=== PATIENT | female | born 1945 | race Caucasian/White ===

== ENCOUNTER → 2021-03-27 | Outpatient (CLI) | payer OTHER ==
[~2021-03-27] MED LIST: ADMELOG SO100 UNIT/1 SC; AMLODIPINE BESY10 MG PO; CALCIUM CARBON500 MG PO; CITALOPRAM HBR40 MG PO; CLOPIDOGREL75 MG PO; FUROSEMIDE40 MG PO; GABAPENTIN100 MG PO; ISOSORBIDE MONO30 MG PO; LANTUS SOL100 UNIT/1 SC; LEVOTHYROXINE150 MCG PO; LISINOPRIL40 MG PO; LOW DOSE ASPIRI81 MG PO; MONTELUKAST SOD10 MG PO; OMEGA-3 ACID ETH1 GM PO; PERCOCET 5-3251 EACH PO; POTASSIUM CHLO10 ME1 PO; PRAVASTATIN SOD40 MG PO; TRICOR145 MG PO
[2021-03-27 11:12] LABS: BUN/CREATININE RATIO 26 (0-10)
== END ==
LOC: LAB 10:19
PROVIDERS: Internal Medicine Cardiovascular Disease
DX: I49.5 Sick sinus syndrome (principal); R55 Syncope and collapse; R00.1 Bradycardia, unspecified; R91.8 Other nonspecific abnormal finding of lung field
CPT/HCPCS: 71046; 80048

== ENCOUNTER → 2021-03-29 | Outpatient (CLI) | payer OTHER | LOC: CATH 06:53 | DX: I44.1 Atrioventricular block, second degree (principal); I49.5 Sick sinus syndrome; R55 Syncope and collapse; I25.10 Atherosclerotic heart disease of native coronary artery without angina pectoris; I10 Essential (primary) hypertension; C50.919 Malignant neoplasm of unspecified site of unspecified female breast; C79.9 Secondary malignant neoplasm of unspecified site; I65.29 Occlusion and stenosis of unspecified carotid artery; I35.0 Nonrheumatic aortic (valve) stenosis; E78.5 Hyperlipidemia, unspecified; Z87.891 Personal history of nicotine dependence; Z88.8 Allergy status to other drugs, medicaments and biological substances; Z79.02 Long term (current) use of antithrombotics/antiplatelets; Z79.82 Long term (current) use of aspirin; Z79.4 Long term (current) use of insulin; Z79.899 Other long term (current) drug therapy | CPT/HCPCS: 33208; 71045; 82962; 99152; 99153; J1644; J2250; J3010; J3370; J7040; J7050; Q9965 ==